=== PATIENT | female | born 1955 | race Caucasian/White ===

== ENCOUNTER 2017-03-27 14:29 | Emergency (ER) | payer OTHER ==
[~2017-03-27] VITALS: Ht 162.6 cm; Wt 53.1 kg
[2017-03-27] MEDS ORDERED: ESTRADIOL1 MG PO (15:51)
[2017-03-27] MEDS ORDERED: LISINOPRIL-HCT1 EAC1 PO (15:51)
[2017-03-27] MEDS ORDERED: LORAZEPAM0.5 MG PO (15:52)
[2017-03-27] MEDS ORDERED: SIMVASTATIN20 MG PO (15:52)
[2017-03-27] MEDS ORDERED: ATENOLOL25 MG PO (15:52)
[2017-03-27] MEDS ORDERED: NORTRIPTYLINE H10 MG PO (15:53)
[2017-03-27] MEDS ORDERED: ATIVAN0.5 MG PO (16:58)
== END 2017-03-27 17:10 | disposition home or self-care (01) ==
LOC: ED 14:29
DX: F41.9 Anxiety disorder, unspecified (principal); F19.939 Other psychoactive substance use, unspecified with withdrawal, unspecified; I10 Essential (primary) hypertension; Z88.0 Allergy status to penicillin; Z79.899 Other long term (current) drug therapy
CPT/HCPCS: 99283